=== PATIENT | female | born 1965 | race Caucasian/White ===

== ENCOUNTER 2016-12-09 | Emergency (ER) | payer SELFPAY ==
[~2016-12-09] VITALS: Ht 162.6 cm; Wt 72.6 kg
--- NOTE | 2016-12-09 00:08 | NUR ---
PT BIB [facility] TO ER BED 2, EMS STATED PT WAS AT A [facility] AND STARTED ACTIVELY VOMITING. ACCOMPANING PT. 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 VSS/RESP EVEN AND UNLABORED/NAD NOTED/SKIN WARM AND DRY.
--- NOTE | 2016-12-09 00:12 | NUR ---
20G IV TO R WRIST USING ASEPTIC TECH. MEDICATED ORDERED PER .
[2016-12-09] MEDS ORDERED: ONDANSETRON HCL/PF 4 MG/2 ML VIAL ONE ×2 (00:17→01:31)
[2016-12-09] MEDS ORDERED: IV NS 0.9% 1,000 ML BAG IV ONE (00:30)
[2016-12-09] MEDS ORDERED: ONDANSETRON HCL/PF 4 MG/2 ML VIAL IV ONE ×2 (00:30→02:00)
[2016-12-09] MEDS ORDERED: FAMOTIDINE/PF INJ 20 MG/2 ML VIAL IV ONE ×2 (00:51→01:00)
[2016-12-09 01:01] LABS: BASOPHILS % (AUTO) 0.3 % (0.0-2.0); EOSINOPHILS # (AUTO) 0.1 /CMM (0.0-0.7); EOSINOPHILS % (AUTO) 0.7 % (0.0-6.0); HEMATOCRIT 37 % (33-45); HEMOGLOBIN 12.6 g/dL (11.5-14.8); LYMPHOCYTES # (AUTO) 3.1 /CMM (0.8-4.8); LYMPHOCYTES % (AUTO) 34.3 % (20.0-44.0); MEAN CORPUSCULAR HEMOGLOBIN 30 PG (26.0-33.0); MEAN CORPUSCULAR HGB CONC 34 g/dl (31.0-36.0); MEAN CORPUSCULAR VOLUME 88 fL (82-100); MONOCYTES # (AUTO) 0.5 /CMM (0.1-1.30); MONOCYTES % (AUTO) 5.4 % (2.0-12.0); NEUTROPHILS # (AUTO) 5.4 /CMM (1.8-8.9); NEUTROPHILS % (AUTO) 59.3 % (43.0-81.0); PLATELET COUNT (AUTO) 255 /CMM (150-450); RDW COEFFICIENT OF VARIATION 12.9 (11.5-15.0); RED BLOOD CELL COUNT(AUTO) 4.21 MIL/uL (4.0-5.2); WHITE BLOOD COUNT (AUTO) 9.1 K/uL (4.3-11.0)
[2016-12-09] MEDS ORDERED: METOCLOPRAMIDE HCL 10 MG/2 ML VIAL ONE (01:11)
[2016-12-09 01:15] LABS: INR 0.96 (0.87-1.13)
[2016-12-09 01:18] LABS: ALANINE AMINOTRANSFERASE 28 U/L (12-78); ALBUMIN 3.3 g/dL (3.4-5.0); ALKALINE PHOSPHATASE 67 U/L (46-116); ASPARTATE AMINOTRANSFERASE 18 U/L (15-37); BILIRUBIN,DIRECT 0.1 mg/dL (0.0-0.2); BILIRUBIN,TOTAL 0.2 mg/dL (0.2-1.0); CALCIUM, SERUM 8.5 mg/dL (8.5-10.1); CARBON DIOXIDE 26 mmol/L (21-32); CHLORIDE 107 mmol/L (98-107); CREATININE 0.6 mg/dL (0.6-1.3); GLUCOSE 100 mg/dL (74-106); LIPASE 197 U/L (73-393); POTASSIUM 3.8 mmol/L (3.5-5.1); SODIUM SERUM 141 mmol/L (136-145); TOTAL PROTEIN, SERUM 6.1 g/dL (6.4-8.2); UREA NITROGEN, BLOOD 14 mg/dL (7-18)
[2016-12-09 01:19] LABS: TROPONIN I < 0.017 ng/mL (0.00-0.056)
[2016-12-09] MEDS ORDERED: METOCLOPRAMIDE HCL 10 MG/2 ML VIAL IV ONE ×2 (01:30)
--- NOTE | 2016-12-09 01:39 | NUR ---
hong medina at bedside.
[2016-12-09] MEDS ORDERED: LORAZEPAM INJ 2 MG/ML VIAL ONE (02:33)
--- NOTE | 2016-12-09 02:41 | NUR ---
PT VSS, RESP EVEN AND UNLABORED. AT BEDSIDE.
[2016-12-09] MEDS ORDERED: LORAZEPAM INJ 2 MG/ML VIAL IV ONE (03:00)
--- NOTE | 2016-12-09 03:22 | NUR ---
AT BEDSIDE SPEAKING WITH PT.
--- NOTE | 2016-12-09 03:44 | NUR ---
IV removed. Catheter intact and site benign. Pressure and 4x4 applied to site. No bleeding noted. Patient discharged to home in stable condition. Written and verbal after care instructions given. Patient verbalizes understanding of instruction. Pt ambulatory with a steady gait accompanied by , instructed not to drive.
[2016-12-09 03:46] VITALS: BP 120/80
== END 2016-12-09 03:46 | disposition home or self-care (01) ==
LOC: ER 00:02
DX: R11.10 Vomiting, unspecified (principal); R79.1 Abnormal coagulation profile
CPT/HCPCS: 36415; 76705-TC; 80048-TC; 80076-TC; 83690-TC; 84484-TC; 85025-TC; 85730-TC; A4606; J2060; J2405; J2765; J3490; J7030; Z7610